=== PATIENT | male | born 1950 | race Caucasian/White ===

== ENCOUNTER 2018-08-29 12:53 | Emergency (ER) | payer OTHER, MEDICAID ==
[~2018-08-29] VITALS: Ht 175.3 cm; Wt 92.5 kg
--- NOTE | 2018-08-29 12:55 | NUR ---
PT BIBA BLS TO ER BED 11 Addendum: 08/29/18 at 1325 by KRISTOFERSarah PT TO BED 10 NOT 11
[2018-08-29 12:56] VITALS: BP 87/58
--- NOTE | 2018-08-29 13:00 | NUR ---
PT BIB EMS C/O LETHARGY, GENERALIZED WEAKNESS, AND GENERALIZED BODY PAIN. PT A&OX4, BREATHING EVEN AND UNLABORED. DENIES CP/SOB/DIZZINESS. SKIN PINK, WARM, DRY, INTACT. PT WITH ODOR OF URINE NOTED. PT WEARING ADULT DISPOSABLE BRIEF, DRY AT THIS TIME. PT NSR ON MONITOR. SPO2 96% RA.
[2018-08-29] MEDS ORDERED: LYR25 PO (13:10)
[2018-08-29] MEDS ORDERED: GLIP10TA3 PO (13:10)
[2018-08-29] MEDS ORDERED: ATOR40TA PO (13:10)
[2018-08-29] MEDS ORDERED: TAMS0.4C96 PO (13:10)
[2018-08-29] MEDS ORDERED: ASPI-1718 PO (13:10)
[2018-08-29] MEDS ORDERED: SENN-72 PO (13:10)
[2018-08-29] MEDS ORDERED: HYDR-5122 PO (13:10)
[2018-08-29] MEDS ORDERED: MENT1OIN22 TP (13:10)
--- NOTE | 2018-08-29 13:26 | NUR ---
PT EVALUATED BY DR. HUNTER.
[2018-08-29] MEDS ORDERED: NACL 0.9% 500 ML IV SCH (13:39)
--- NOTE | 2018-08-29 13:51 | NUR ---
RT AT THE BEDSIDE , COLLECTING BLOOD FOR ABG, LAB AT BEDSIDE FOR BLOOD ANALYSIS.
--- NOTE | 2018-08-29 14:17 | NUR ---
# 14 FR Urinary catheter inserted utilizing sterile technique. Immediate return of 100 ml DARK YELLOW urine noted. Urine sample collected and sent to lab. Pt tolerated procedure WELL.
[2018-08-29 14:25] LABS: BASOPHILS % (AUTO) 0.1 % (0.0-2.0); HEMATOCRIT 33.6 % (36-52); HEMOGLOBIN 11.1 g/dL (12.0-18.0); LYMPHOCYTES # (AUTO) 1.3 K/uL (2.0-11.5); LYMPHOCYTES % (AUTO) 6.9 % (20.5-51.1); MEAN CORPUSCULAR HEMOGLOBIN 30 pg (27-31); MEAN CORPUSCULAR HGB CONC 33 g/dL (33-37); MEAN CORPUSCULAR VOLUME 89.6 fL (80-94); MONOCYTES # (AUTO) 1.6 K/uL (0.8-1.0); MONOCYTES % (AUTO) 8.2 % (1.7-9.3); NEUTROPHILS # (AUTO) 16.6 K/uL (1.8-7.7); NEUTROPHILS % (AUTO) 84.8 % (42.2-75.2); PLATELET COUNT (AUTO) 417 K/uL (140-450); RED BLOOD CELL COUNT(AUTO) 3.74 MIL/uL (4.20-6.10); RED CELL DISTRIBUTION WIDTH 15.2 % (11.6-13.7); WHITE BLOOD COUNT (AUTO) 19.6 K/uL (4.8-10.8)
--- NOTE | 2018-08-29 14:33 | NUR ---
EKG IN PROGRESS
[2018-08-29 14:35] LABS: APPEARANCE,URINE HAZY (CLEAR); BILIRUBIN,URINE 1+ (NEGATIVE); BLOOD, URINE 3+ (NEGATIVE); COLOR,URINE YELLOW (YELLOW); LEUKOCYTE ESTERASE ,URINE NEGATIVE (NEGATIVE); NITRITE, URINE NEGATIVE (NEGATIVE); PH,URINE 5.5 (5.0-9.0); UGLUCOSE NEGATIVE (NEGATIVE)
[2018-08-29 14:45] LABS: RBC,URINE 11-20 (MOD) /HPF (0-5); URINE AMORPHOUS URATE 1+ /HPF (None Seen); WBC,URINE 0-5 /HPF (0-5)
[2018-08-29 14:45] LABS: PROTHROMBIN TIME 9.7 secs (10.8-13.4)
[2018-08-29 14:48] LABS: ALBUMIN 2.2 g/dL (3.4-5.0); ANION GAP 16.7 (8-16); CARBON DIOXIDE 24.9 mmol/L (21-32); CREATININE 2.8 mg/dL (0.7-1.3); POTASSIUM 3.6 mmol/L (3.5-5.1); TOTAL BILIRUBIN 1.6 mg/dL (0.0-1.0)
--- NOTE | 2018-08-29 14:52 | NUR ---
PT'S SISTER AT BEDSIDE. DR. HUNTER AT BEDSIDE TO SPEAK TO PT AND PT'S SISTER.
--- NOTE | 2018-08-29 14:53 | NUR ---
CALCIUM 12.9
[2018-08-29] MEDS ORDERED: NACL 0.9% 1,000 ML IV ONE (15:00)
--- NOTE | 2018-08-29 15:19 | NUR ---
PT TO RADIOLOGY WITH TECH VIA [employer].
--- NOTE | 2018-08-29 15:51 | NUR ---
PT BACK FROM RADIOLOGY AND CT. PT REMAINS A&0X4, RESTING QUIETLY. BREATHING EVEN AND UNLABORED. NSR ON MONITOR. CONTINUE TO MONITOR. Addendum: 08/29/18 at 1553 by [facility] PT DENIES PAIN AT THIS TIME.
--- NOTE | 2018-08-29 17:11 | NUR ---
DR. HUNTER AT BEDSIDE TO SPEAK TO PT AND PT'S SISTER.
[2018-08-29] MEDS ORDERED: ONDANSETRON 4 MG/2 ML VIAL IVP ONE (17:15)
[2018-08-29] MEDS ORDERED: fentaNYL 0.05 MG/ML VIAL IVP ONE (17:15)
--- NOTE | 2018-08-29 17:17 | NUR ---
PT C/O BACK PAIN. DR. HUNTER AWARE. PT MEDICATED FOR PAIN ORDERED BY DR. HUNTER.
--- NOTE | 2018-08-29 18:27 | NUR ---
PT SLEEPING SOUNDLY, EQUAL CHEST RISE AND FALL. NSR ON MONITOR. PT'S SISTER REMAINS AT BEDSIDE. PT AWAITING TRANSFER TO ANOTHER FACILITY. FACILITY UNKNOWN AT THIS TIME. CONTINUE TO MONITOR.
--- NOTE | 2018-08-29 18:45 | NUR ---
PT'S SISTER SIGNED CONSENT FOR TRANSFER.
--- NOTE | 2018-08-29 19:09 | NUR ---
REPORT TO EBONY LOMAX
--- NOTE | 2018-08-29 19:22 | NUR ---
PT AROUSABLE TO VERBAL STIMULATION; OPENING AND CLOSING EYES. PT IS NON-VERBAL AT THIS TIME. SISTER AND NIECE AT BEDSIDE, PT POSITIONED FOR COMFORT. PUPILS ACCOMIDATING AND REACTIVE TO LIGHT.
--- NOTE | 2018-08-29 21:04 | NUR ---
PT AROUSABLE TO VOICE AND PAINFUL STIMULI. 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 OPENING AND CLOSING EYES, +MOANING.
--- NOTE | 2018-08-29 23:30 | NUR ---
PT AROUSABLE TO PAIN AND VOICE; PT OPENING AND CLOSING EYES. BREATHING LABORED AND EQUAL. NIECE AT BEDSIDE.
--- NOTE | 2018-08-29 23:50 | NUR ---
REPORT PROVIDED TO SAMMY AT [facility], RECIEVING FACILITY FOR PT. ETA W/ [facility] WILL BE WITH IN THE HOUR, FAMILY AT BEDSIDE NOTIFIED.
--- NOTE | 2018-08-30 01:10 | NUR ---
Patient to be transferred to [facility]. Is being transferred due to higher level of care. Receiving facility has accepting physician and available space. ER physician has signed transfer form. Patient or responsible constitution party has agreed to transfer and signed form. Patient belongings inventoried and will be sent with patient. Copy of nursing notes, lab reports, EKG, Physicians Orders and X-rays to be sent with patient. Report called to Tevor at receiving facility. [facility] at bedside for transportation, report provided.
[2018-08-30 01:18] VITALS: BP 97/68
--- NOTE | 2018-08-30 01:27 | NUR ---
PT OFF THE UNIT BY [facility].
== END 2018-08-30 01:20 | disposition short-term general hospital (02) ==
LOC: MED 12:53
DX: C61 Malignant neoplasm of prostate (principal); C79.89 Secondary malignant neoplasm of other specified sites; C79.51 Secondary malignant neoplasm of bone; E83.52 Hypercalcemia; E86.0 Dehydration; N28.9 Disorder of kidney and ureter, unspecified; D72.829 Elevated white blood cell count, unspecified; D64.9 Anemia, unspecified; E11.9 Type 2 diabetes mellitus without complications; I10 Essential (primary) hypertension; Z85.46 Personal history of malignant neoplasm of prostate; Z79.82 Long term (current) use of aspirin; Z79.899 Other long term (current) drug therapy; Z79.84 Long term (current) use of oral hypoglycemic drugs; Z88.8 Allergy status to other drugs, medicaments and biological substances
CPT/HCPCS: 36415; 36600; 70450; 71045; 72100; 73502; 80053; 81001; 82803; 83605; 83880; 84484; 85025; 85610; 85730; 87040; 87086; 93005; 96361; 96374; 96375; 99291; C1758; J2405; J3010; J7030; Q0092